=== PATIENT | male | born 1945 | race Hispanic/Latino ===

== ENCOUNTER 2016-07-03 19:20 | Emergency (ER) | payer MEDICARE, OTHER ==
[2016-07-03] MEDS ORDERED: REGLAN IV ONE (21:16)
[2016-07-03] MEDS ORDERED: NACL 0.9% 1000 ML 1,000 ML IV ONE (21:16)
[2016-07-03 21:22] LABS: Creatine Kinase MB 3.8 ng/mL (0.0-4.0)
[2016-07-03 21:23] LABS: B-Hydroxybutyrate 3.2 mg/dL (0.2-2.8); BUN/Creatinine Ratio 8.21; Calcium 8.2 mg/dL (8.4-10.2); Chloride 90.5 mmol/L (98-107); Potassium 5.1 mmol/L (3.6-5.0)
[2016-07-03 21:26] LABS: Eosinophils % (Auto) 6.2 % (0.0-4.3); Hematocrit 32.9 % (35.5-45.6); Hemoglobin 11.3 gm/dl (11.8-15.2); Mean Corpuscular HGB Conc 35 % (32-34); Mean Corpuscular Hemoglobin 32 pg (28-32); Mean Corpuscular Volume 92 fl (84-94); Platelet Count 152 K/mm3 (140-440); Red Blood Count 3.56 M/mm3 (3.65-5.03); Red Cell Distribution Width 14.9 % (13.2-15.2); White Blood Count 5.8 K/mm3 (4.5-11.0)
[2016-07-03 23:45] VITALS: BP 119/66
--- NOTE | 2016-07-04 00:48 | Emergency Department Report ---
HPI - General Chief Complaint: Dizziness Time Seen by Provider: 07/03/16 21:15 - HPI HPI: The patient is a 71-year-old male who presents for evaluation of lightheadedness. The patient reports on and off lightheadedness for the past one week, significantly worsened today at 4 PM, severe when present, exacerbated with standing up, improved with sitting down and resting. The patient denies fever, headache, neck pain, paresthesias, focal motor weakness, blurry vision, ear pain, tinnitus, chest pain, hemoptysis, dyspnea, abdominal pain, confusion/altered mental status, or recent URI or diarrhea. ED Past Medical Hx - Past Medical History Previous Medical History?: Yes Hx Hypertension: Yes Hx Diabetes: Yes Additional medical history: high cholesterol, chronic back pain uses a cane for support - Social History Smoking Status: Unknown if ever smoked Substance Use Type: None - Medications Home Medications: Home Medications Medication Instructions Recorded Confirmed Last Taken Type Allopurinol [Zyloprim] 50 mg PO QDAY 07/03/16 07/03/16 Unknown History Esomeprazole Magnesium [NexIUM] 40 mg PO QDAY 07/03/16 07/03/16 Unknown History Insulin Glargine [Lantus] 50 unit SUB-Q QHS 07/03/16 07/03/16 Unknown History Rosuvastatin Calcium [Crestor] 40 mg PO QHS 07/03/16 07/03/16 Unknown History Sitagliptin Phosphate [Januvia] 25 mg PO DAILY 07/03/16 07/03/16 Unknown History metFORMIN [Glucophage] 400 mg PO TID 07/03/16 07/03/16 Unknown History ED Review of Systems ROS: Stated complaint: DIZZINESS Other details as noted in HPI Constitutional: denies: fever; reports dizziness ENT: denies: throat or neck pain Respiratory: denies: cough, shortness of breath Cardiovascular: denies: chest pain Endocrine: denies unexplained weight loss or gain Gastrointestinal: denies: abdominal pain, nausea Genitourinary: denies: dysuria Musculoskeletal: denies: leg swelling Skin: denies: rash Neurological: denies: headache Hematological/Lymphatic: denies: easy bleeding or easy bruising Psych: denies sadness or hopelessness Physical Exam - Physical Exam Vital Signs: Vital Signs 07/03/16 07/03/16 07/03/16 20:18 21:00 21:26 Temperature 98.0 F Pulse Rate 75 76 Respiratory 18 20 20 Rate Blood Pressure 83/52 Blood Pressure 84/51 [Left] O2 Sat by Pulse 98 97 98 Oximetry 07/03/16 07/03/16 07/03/16 22:00 22:30 23:30 Temperature Pulse Rate 77 70 76 Respiratory 20 12 17 Rate Blood Pressure Blood Pressure 90/50 [Left] O2 Sat by Pulse 97 99 100 Oximetry 07/03/16 23:44 Temperature Pulse Rate 70 Respiratory 20 Rate Blood Pressure Blood Pressure 119/66 [Left] O2 Sat by Pulse 97 Oximetry Physical Exam: General: well-nourished, well-developed, no acute distress Head: Normocephalic, atraumatic Eyes: normal sclera, EOMI, PERRL ENT: Mucous membranes are pale and dry Neck: No neck stiffness, no cervical adenopathy Respiratory: Breath sounds equal bilaterally, no wheezing, rales, or rhonchi Cardio: S1 and S2 present, no murmurs, rubs, gallops, capillary refill is delayed Abdomen: Normoactive bowel sounds, soft abdomen, no tenderness Musc: No pitting edema Skin: No rash Neuro: Alert oriented 3, no facial drooping, normal speech, no pronator drift, no sensation or motor deficits, no obvious gross sensation and motor deficits in the arms or legs, reflexes 2+ and symmetric on DTR testing, no coordination deficit with Unasyn nose testing, no obvious gross neuro deficits Psych: Normal affect ED Course Vital Signs 07/03/16 07/03/16 07/03/16 20:18 21:00 21:26 Temperature 98.0 F Pulse Rate 75 76 Respiratory 18 20 20 Rate Blood Pressure 83/52 Blood Pressure 84/51 [Left] O2 Sat by Pulse 98 97 98 Oximetry 07/03/16 07/03/16 07/03/16 22:00 22:30 23:30 Temperature Pulse Rate 77 70 76 Respiratory 20 12 17 Rate Blood Pressure Blood Pressure 90/50 [Left] O2 Sat by Pulse 97 99 100 Oximetry 07/03/16 23:44 Temperature Pulse Rate 70 Respiratory 20 Rate Blood Pressure Blood Pressure 119/66 [Left] O2 Sat by Pulse 97 Oximetry ED Medical Decision Making - Lab Data Result diagrams: 07/03/16 20:45 07/03/16 20:45 - Medical Decision Making The patient was seen and examined by myself. The patient is placed on a environmental monitoring technician and continuous pulse ox. On initial evaluation, the patient was found to be in no distress. Evaluation orders were placed. The patient given 2 L normal saline fluid bolus for treatment of dehydration, low blood pressure, and high blood sugar. Lab results reveal elevated creatinine of 2.8, elevated glucose 243, mildly elevated ketones of 2, and venous pH of 7.31, values not consistent with DKA. The patient was reevaluated and found to have resolution of low blood pressure, BP now 119/66. The patient was reevaluated and reported that his dizziness was resolved. The patient is informed that I would like to admit him to the hospital for further evaluation of elevated creatinine. The patient declines admission and states that he would like to follow up with his primary care physician regarding his impaired renal function. The patient is stable for discharge with outpatient follow-up. The patient is given follow-up and return instructions. The patient expressed understanding and agreed with the plan. The patient is discharged in stable condition. Critical care attestation.: If time is entered above; I have spent that time in minutes in the direct care of this critically ill patient, excluding procedure time. ED Disposition Clinical Impression: Dehydration, Orthostatic dizziness, DAVID (acute kidney injury), Acute hyperglycemia Disposition: DISCHARGED TO HOME OR SELFCARE Is pt being admited?: No Does the pt Need Aspirin: No Condition: Stable Instructions: Dehydration (ED), Dizziness (ED), Impaired Kidney Function (ED), Diabetic Hyperglycemia (ED) Referrals: PRIMARY CARE, [Primary Care Provider] - 3-5 Days Time of Disposition: 00:42
== END 2016-07-04 01:00 | disposition home or self-care (01) ==
LOC: ED 19:20
DX: N17.9 Acute kidney failure, unspecified (principal); E86.0 Dehydration; E11.65 Type 2 diabetes mellitus with hyperglycemia; I10 Essential (primary) hypertension; E78.00 Pure hypercholesterolemia, unspecified
CPT/HCPCS: 36415; 80048; 82010; 82550; 82553; 82805; 83880; 84484; 85025; 93005; 93010; 96361; 96374; 99285; J2765; J7030